=== PATIENT | female | born 1985 | race Caucasian/White ===

== ENCOUNTER 2016-07-25 12:50 | Emergency (ER) | payer MEDICARE ==
[2011-04-27 14:32] VITALS: BMI 25.9
[2016-07-25 16:36] LABS: APPEARANCE HAZY (CLEAR); BACTERIA FEW /hpf (NONE SEEN); BILIRUBIN NEGATIVE (NEGATIVE); COLOR YELLOW (YELLOW); GLUCOSE 1000 mg/dL (NEGATIVE); KETONE NEGATIVE (NEGATIVE); LEUKOCYTE ESTERASE 1+ (NEGATIVE); MUCUS <1+ /lpf (NONE SEEN); NITRITE NEGATIVE (NEGATIVE); PROTEIN NEGATIVE (NEGATIVE); RED CELLS - URINE 0-5 /hpf (0-5); SPECIFIC GRAVITY 1.025 (1.005-1.020); UROBILINOGEN NORMAL (NORMAL); YEAST OCC /hpf (NONE SEEN)
== END 2016-07-25 17:59 | disposition home or self-care (01) ==
LOC: D.ER 12:50
PROVIDERS: Physician Assistant Medical
DX: A60.04 Herpesviral vulvovaginitis (principal); N39.0 Urinary tract infection, site not specified